=== PATIENT | male | born 1965 | race Caucasian/White ===

== ENCOUNTER → 2020-04-29 07:47 | Outpatient (CLI) | payer OTHER, SELFPAY ==
--- NOTE | ~2020-04-29 | US_ITS ---
US right upper quadrant DATE: 04/29/2020 08:15 INDICATION: Abnormal liver function tests TECHNIQUE: Real-time imaging of liver, pancreas, gallbladder fossa COMPARISON: 11/08/2017 right upper quadrant abdominal ultrasound 11/08/2017 CT abdomen pelvis FINDINGS: No pancreatic mass lesion or ductal dilatation is evident. There are hepatic cysts, measuring up to approximately 1.5 cm maximal dimension. Hepatic steatosis. N ormal hepatopedal portal venous flow direction. The gallbladder is surgically absent. The common bile duct measures 3.2 mm, normal. IMPRESSION: Status post cholecystectomy Hepatic steatosis Hepatic cysts Reviewed, dictated and finalized at [facility] Reviewed, dictated and finalized at [facility]
== END ==
PROVIDERS: PCP Registered Nurse; Visit Provider Registered Nurse
DX: R94.5 Abnormal results of liver function studies (principal); E05.90 Thyrotoxicosis, unspecified without thyrotoxic crisis or storm; K76.89 Other specified diseases of liver; K76.0 Fatty (change of) liver, not elsewhere classified; Z90.49 Acquired absence of other specified parts of digestive tract
CPT/HCPCS: 76705